=== PATIENT | male | born 1945 | race Caucasian/White ===

== ENCOUNTER 2020-07-13 22:14 | Outpatient (REF) | payer MEDICARE, SELFPAY ==
[2020-07-13 21:37] LABS: Anion Gap 5.1 mmol/L (3-11); BUN 23 mg/dL (7-18); CO2 30.9 mmol/L (21.0-32.0); CREATININE 0.9 mg/dL (0.70-1.30); Calcium 8.8 mg/dL (8.5-10.1); Calculated LDL 102 mg/dL (<100); Chloride 107 mmol/L (98-107); Cholesterol 194 mg/dL (<200); Glucose 82 mg/dL (74-106); HDL Cholesterol 83 mg/dL (40-60); Sodium 143 mmol/L (136-145); Triglyceride 49 mg/dL (<150)
[2020-07-14 17:27] LABS: PSA, Screening 1.4 ng/mL (0.0-6.5)
== END 2020-07-13 22:15 | disposition home or self-care (01) ==
LOC: NCHCN 22:14
PROVIDERS: PCP Internal Medicine; Visit Provider Nurse Practitioner Family
DX: R79.89 Other specified abnormal findings of blood chemistry (principal); Z12.5 Encounter for screening for malignant neoplasm of prostate; Z13.6 Encounter for screening for cardiovascular disorders
CPT/HCPCS: 80048; 80061; 84153

== ENCOUNTER 2022-10-30 09:08 | Outpatient (REF) | payer MEDICARE, SELFPAY ==
[2022-10-30 14:35] LABS: Anion Gap 7.3 mmol/L (3-11); BUN 15 mg/dL (7-18); CO2 27.7 mmol/L (21.0-32.0); Calcium 8.8 mg/dL (8.5-10.1); Chloride 105 mmol/L (98-107); Estimated GFR 76.56 (mL/min/1.73m2); Glucose 95 mg/dL (74-106); Potassium 4.4 mmol/L (3.5-5.1); Sodium 140 mmol/L (136-145)
== END 2022-10-30 09:09 | disposition home or self-care (01) ==
LOC: NCHCN 09:08
PROVIDERS: PCP Internal Medicine; Visit Provider Nurse Practitioner Family
DX: U07.1 COVID-19 (principal)
CPT/HCPCS: 80048

== ENCOUNTER 2023-08-08 18:52 | Outpatient (REF) | payer MEDICARE, OTHER, SELFPAY ==
[2023-08-08 20:53] LABS: HCT 40.7 % (40.0-50.0); HGB 13.7 g/dL (13.5-17.5); MCH 31.1 pg (27.0-33.0); MCHC 33.7 % (32.0-36.0); MCV 93 fL (80-95); MPV 10.2 fL (8.0-11.0); Platelet Count 222 10^3/uL (130-400); RDW 12.5 % (11.8-14.1); RDW-SD 42.7 fL; WBC 5.07 10^3/uL (4.4-10.8)
[2023-08-08 21:04] LABS: ALT 17 U/L (16-63); AST 23 U/L (15-37); Albumin 3.6 g/dL (3.4-5.0); Alkaline Phosphatase 65 U/L (46-116); Anion Gap 6.7 mmol/L (3-11); BUN 20 mg/dL (7-18); Bilirubin, Total 0.5 mg/dL (0.2-1.0); CO2 28.3 mmol/L (21.0-32.0); Calcium 8.6 mg/dL (8.5-10.1); Calculated LDL 87 mg/dL (<100); Chloride 108 mmol/L (98-107); Cholesterol 188 mg/dL (<200); Estimated GFR 76.56 (mL/min/1.73m2); Glucose 95 mg/dL (74-106); HDL Cholesterol 86 mg/dL (40-60); Potassium 4.6 mmol/L (3.5-5.1); Sodium 143 mmol/L (136-145); Total Protein 6.9 g/dL (6.4-8.2); Triglyceride 76 mg/dL (<150)
== END 2023-08-08 18:53 | disposition home or self-care (01) ==
LOC: NCHCN 18:52
PROVIDERS: PCP Internal Medicine; Visit Provider Nurse Practitioner Family
DX: Z01.818 Encounter for other preprocedural examination (principal); Z01.812 Encounter for preprocedural laboratory examination
CPT/HCPCS: 80053; 80061; 85027